=== PATIENT | female | born 1940 | race Caucasian/White ===

== ENCOUNTER → 2017-03-14 | Outpatient (CLI) | payer MEDICARE ==
--- NOTE | 2017-03-14 19:11 | XCELERA REPORT ---
[address] [address] Lower Extremity Venous Evaluation Name: PAL STERLING Age: 76 yrs Gender: Female : 1940 Patient Status: Outpatient Patient Location: Study Date: 03/14/2017 03:58 PM Procedure: Color flow and duplex imaging bilaterally of the veins of the lower extremities as well as the Common Femoral veins. Reason For Study: BLE EDEMA Ordering Physician: MILLA MUELLER Performed By: Nic Yarbrough Right Sided Venous Evaluation Peroneal veins difficult to visualize. Only one of two convincingly demonstrate augmentation. Otherwise normal vessel filling wall to wall, compression and augmentation as well as Colour flow down to the infrageniculate veins. Left Sided Venous Evaluation Peroneal veins difficult to visualize. Otherwise normal vessel filling wall to wall, compression and augmentation as well as Colour flow down to the infrageniculate veins. Interpretation Summary Equivocal findings in one of two Peroneal veins on the right. Peroneal veins difficult to visualize,bilaterally. Suggest repeat study in a few days. : MILLA MUELLER > Héctor Saenz
== END ==
LOC: SP 15:27
PROVIDERS: ATTEND Family Medicine
DX: R60.9 Edema, unspecified (principal)
CPT/HCPCS: 93970

== ENCOUNTER → 2017-03-16 | Outpatient (CLI) | payer MEDICAID, MEDICARE, OTHER ==
--- NOTE | 2017-03-16 16:02 | XCELERA REPORT ---
[address] [address] Lower Extremity Venous Evaluation Name: PAL STERLING Age: 76 yrs Gender: Female : 1940 Patient Status: Outpatient Patient Location: Study Date: 03/16/2017 02:01 PM Procedure: Color flow and duplex imaging of the veins of the right lower extremity as well as the left Common Femoral vein. Reason For Study: RLE EDEMA R60.9 Ordering Physician: MILLA MUELLER Performed By: Lenore Johnston Right Sided Venous Evaluation Normal vessel filling wall to wall, compression and augmentation as well as Colour flow down to the infrageniculate veins. Left Sided Venous Evaluation The left common femoral vein is fully compressible. Spontaneous and phasic flow is present in the left common femoral vein. Interpretation Summary No duplex evidence of DVT or obstruction in the right lower extremity nor in the left Common Femoral vein. : MILLA MUELLER > Héctor Saenz
== END ==
LOC: SP 13:47
PROVIDERS: ATTEND Family Medicine
DX: R60.9 Edema, unspecified (principal)
CPT/HCPCS: 93971

== ENCOUNTER 2017-09-21 11:55 | Day surgery (SDC) | payer MEDICARE ==
[~2017-09-21 11:55] MED LIST: CHONDR SU A NA/HYALUR INTRAOC KIT (SURGICARE) ONE; EPINEPHRINE INJ/PF 1 MG/1 ML AMPULE ONE; KETOROLAC TROMETHAMINE 0.45% 4 DROP/0.4 ML DROPERETTE OD PRN; LIDOCAINE 1% INJ-PF (10 MG/ML) 30 ML SDV ONE; TETRACAINE HCL 0.5% OPH SOLN 0.6 ML DROPERETTE ONE; TOBRAMYCIN SULFATE/DEXAMETH OPH OINTMENT 3.5 GM ONE
[2017-09-21] MEDS: TROPICAMIDE 1% OPH SOLN 3 ML OD PRN ×3 (12:25→12:45)
[2017-09-21] MEDS: CYCLOPENTOLATE 0.2%/PHENYLEPHRINE 1% OPH SOLN 2 ML OD PRN ×3 (12:25→12:45)
[2017-09-21] MEDS: TETRACAINE HCL 0.5% OPH SOLN 0.6 ML DROPERETTE OD PRN ×3 (12:26→12:49)
[2017-09-21] MEDS: BESIFLOXACIN HCL 0.6% OPH SUSP 5 ML BOTTLE OD PRN ×3 (12:26→13:09)
[2017-09-21] MEDS ORDERED: MIDAZOLAM 2 MG/2 ML INJ ONE (12:32)
== END 2017-09-21 14:02 | disposition home or self-care (01) ==
LOC: SC 11:55
PROVIDERS: ATTEND Ophthalmology
PROC: 08RJ3JZ Replacement of Right Lens with Synthetic Substitute, Percutaneous Approach (ICD-10-PCS; principal; 2017-09-21 12:45)
DX: H25.11 Age-related nuclear cataract, right eye (principal); J44.9 Chronic obstructive pulmonary disease, unspecified; I10 Essential (primary) hypertension; E78.00 Pure hypercholesterolemia, unspecified; Z87.891 Personal history of nicotine dependence; Z79.51 Long term (current) use of inhaled steroids; Z79.899 Other long term (current) drug therapy
CPT/HCPCS: 66984; V2630; J2250; J3490 ×3; A9270; J0171; 142

== ENCOUNTER 2017-09-28 10:20 | Day surgery (SDC) | payer MEDICARE ==
[~2017-09-28 10:20] MED LIST changes: -CHONDR SU A NA/HYALUR INTRAOC KIT (SURGICARE) ONE; -EPINEPHRINE INJ/PF 1 MG/1 ML AMPULE ONE; -KETOROLAC TROMETHAMINE 0.45% 4 DROP/0.4 ML DROPERETTE OD PRN; +KETOROLAC TROMETHAMINE 0.45% 4 DROP/0.4 ML DROPERETTE OS PRN; -LIDOCAINE 1% INJ-PF (10 MG/ML) 30 ML SDV ONE; -TETRACAINE HCL 0.5% OPH SOLN 0.6 ML DROPERETTE ONE; -TOBRAMYCIN SULFATE/DEXAMETH OPH OINTMENT 3.5 GM ONE
[2017-09-28] MEDS: TETRACAINE HCL 0.5% OPH SOLN 0.6 ML DROPERETTE OS PRN ×4 (10:45→11:26)
[2017-09-28] MEDS: CYCLOPENTOLATE 0.2%/PHENYLEPHRINE 1% OPH SOLN 2 ML OS PRN ×3 (10:46→11:10)
[2017-09-28] MEDS: BESIFLOXACIN HCL 0.6% OPH SUSP 5 ML BOTTLE OS PRN ×4 (10:46→11:45)
[2017-09-28] MEDS: TROPICAMIDE 1% OPH SOLN 3 ML OS PRN ×3 (10:46→11:10)
[2017-09-28] MEDS ORDERED: MIDAZOLAM 2 MG/2 ML INJ ONE (11:16)
[2017-09-28] MEDS ORDERED: FENTANYL CITRATE INJ/PF 100 MCG/2 ML AMPUL ONE (11:17)
[2017-09-28] MEDS: LIDOCAINE 1% INJ-PF (10 MG/ML) 30 ML SDV ONE ×2 (11:35)
[2017-09-28] MEDS: EPINEPHRINE INJ/PF 1 MG/1 ML AMPULE ONE ×2 (11:35)
[2017-09-28] MEDS: CHONDR SU A NA/HYALUR INTRAOC KIT (SURGICARE) ONE ×2 (11:35)
[2017-09-28] MEDS: TOBRAMYCIN SULFATE/DEXAMETH OPH OINTMENT 3.5 GM ONE ×2 (11:45)
== END 2017-09-28 12:35 | disposition home or self-care (01) ==
LOC: SC 10:20
PROVIDERS: ATTEND Ophthalmology
PROC: 08RK3JZ Replacement of Left Lens with Synthetic Substitute, Percutaneous Approach (ICD-10-PCS; principal; 2017-09-28 11:15)
DX: H25.12 Age-related nuclear cataract, left eye (principal); Z98.41 Cataract extraction status, right eye; J44.9 Chronic obstructive pulmonary disease, unspecified; I10 Essential (primary) hypertension; E78.00 Pure hypercholesterolemia, unspecified; Z96.651 Presence of right artificial knee joint; Z79.899 Other long term (current) drug therapy; Z79.51 Long term (current) use of inhaled steroids; Z87.891 Personal history of nicotine dependence
CPT/HCPCS: 66984; V2630; J2250; J3490 ×3; A9270; J0171; J3010; 142

== ENCOUNTER 2018-05-26 17:20 | Inpatient (IN) | payer MEDICARE, MEDICAID ==
[2018-05-26] MEDS ORDERED: DEXAMETHASONE SOD PHOS INJ 10 MG/1 ML VIAL IV ONE (17:46)
[2018-05-26] MEDS ORDERED: MORPHINE SULFATE 10 MG/ML INJ IV ONE (17:46)
[2018-05-26] MEDS ORDERED: ONDANSETRON HCL INJ/PF 4 MG/2 ML SDV IV ONE (17:46)
--- NOTE | 2018-05-26 18:33 | RADIOLOGY REPORT (SQ) ---
EXAM DESCRIPTION: PELVIS AP COMPLETED DATE/TIME: 05/26/2018 6:21 pm REASON FOR STUDY: fall COMPARISON: None. NUMBER OF VIEWS: One view TECHNIQUE: AP Pelvis LIMITATIONS: None. FINDINGS: MINERALIZATION: Normal. HIPS: No acute fracture or dislocation. No worrisome bone lesions. PELVIS AND SACRUM: No acute fracture or dislocation. No worrisome bone lesions. PUBIS AND ISCHIUM: No acute fracture. Incidental cortical bone island in the left ischium. LOWER LUMBAR SPINE: No significant findings as visualized. SOFT TISSUES: No findings. OTHER: Intact hardware in the right femur. IMPRESSION: NO ACUTE FINDINGS. INTACT HARDWARE IN THE RIGHT FEMUR. TECHNICAL DOCUMENTATION: JOB ID: [id number] [employer]- All Rights Reserved Reading location - IP/workstation name: [email or web address]
--- NOTE | 2018-05-26 18:35 | RADIOLOGY REPORT (SQ) ---
EXAM DESCRIPTION: T SPINE AP/LAT COMPLETED DATE/TIME: 05/26/2018 6:21 pm REASON FOR STUDY: fall COMPARISON: Chest x-ray dated 11/20/2015. NUMBER OF VIEWS: Two views. TECHNIQUE: AP and lateral radiographic images acquired of the thoracic spine. LIMITATIONS: None. FINDINGS: MINERALIZATION: Normal. ALIGNMENT: Normal. No scoliosis. VERTEBRAE: Mild wedge deformities of the midthoracic vertebrae appear unchanged. DISCS: Multilevel disc space narrowing with osteophytes. HARDWARE: None in the spine. MEDIASTINUM AND SOFT TISSUES: Normal heart size and aortic contour. No soft tissue abnormality. VISUALIZED LUNG ROSALES: Clear. OTHER: No other significant finding. IMPRESSION: CHRONIC DEGENERATIVE CHANGES. NO APPARENT ACUTE FINDINGS. TECHNICAL DOCUMENTATION: JOB ID: [id number] [employer]- All Rights Reserved Reading location - IP/workstation name: [email or web address]
--- NOTE | 2018-05-26 18:36 | ER Document Report ---
ED General - General Chief Complaint: Fall Stated Complaint: GENERAL WEAKNESS Time Seen by Provider: 05/26/18 17:44 Mode of Arrival: Ambulatory Information source: Patient Notes: This is a 77-year-old female with a history of COPD, hypertension who presents to the emergency room after a fall in the kitchen while she was appearing for dinner. Patient fell on her buttocks, she denies head injury or neck pain. She does have significant lumbar pain and was brought in by EMS. She denies any weakness to the lower extremities. She denies any numbness to the lower extremities. She denies any numbness to the saddle area. TRAVEL OUTSIDE OF THE [place] IN LAST 30 DAYS: No - HPI Onset: Just prior to arrival Onset/Duration: Sudden Quality of pain: Dull Severity: Severe Pain Level: 5 Associated symptoms: denies: Chest pain, Fever, Shortness of breath Exacerbated by: Movement Relieved by: Remaining still Similar symptoms previously: No Recently seen / treated by doctor: Yes - Related Data Allergies/Adverse Reactions: Coconut * [Coconut] Allergy (Severe, Verified 08/20/15 14:50) Swelling of Throat strawberries Allergy (Severe, Uncoded 08/20/15 14:50) hives/rash/itch Past Medical History - General Information source: Patient - Social History Smoking Status: Never Smoker Cigarette use (# per day): No Chew tobacco use (# tins/day): No Frequency of alcohol use: None Drug Abuse: None Lives with: Family Family History: None Patient has suicidal ideation: No Patient has homicidal ideation: No - Past Medical History Cardiac Medical History: Reports: Hx Hypercholesterolemia - meds x 7 years, Hx Hypertension - meds x 10 years, Hx Heart Murmur - as child only Denies: Hx Atrial Fibrillation, Hx Congestive Heart Failure, Hx Coronary Artery Disease, Hx Heart Attack, Hx Peripheral Vascular Disease Pulmonary Medical History: Reports: Hx Asthma Neurological Medical History: Denies: Hx Cerebrovascular Accident, Hx Seizures Renal/ Medical History: Denies: Hx End Stage Renal Disease, Hx Kidney Stones, Hx Peritoneal Dialysis Malignancy Medical History: Denies: Hx Leukemia GI Medical History: Denies: Hx Hepatitis, Hx Hiatal Hernia, Hx Ulcer Musculoskeletal Medical History: Reports Hx Arthritis, Denies Hx Fibromyalgia, Denies Hx Muscular Dystrophy Traumatic Medical History: Reports: Hx Fractures - LT tib/fib, 1968, traction x 24 days, LT wrist ORIF 2007 Infectious Medical History: Denies: Hx Hepatitis, Hx HIV Past Surgical History: Reports: Hx Section - x 4, Hx Tonsillectomy - at age 44 years old, Hx Tubal Ligation. Denies: Hx Appendectomy, Hx Bowel Surgery, Hx Cholecystectomy, Hx Coronary Artery Bypass Graft, Hx Gastric Bypass Surgery, Hx Herniorrhaphy, Hx Hysterectomy, Hx Mastectomy, Hx Open Heart Surgery , Hx Pacemaker Review of Systems - Review of Systems Constitutional: denies: Chills, Fever EENT: No symptoms reported Cardiovascular: denies: Chest pain, Palpitations, Syncope, Dizziness Respiratory: denies: Cough, Short of breath, Wheezing Gastrointestinal: denies: Abdomen distended, Abdominal pain Genitourinary: No symptoms reported Female Genitourinary: No symptoms reported Musculoskeletal: Back pain. denies: Neck pain Skin: No symptoms reported Hematologic/Lymphatic: No symptoms reported Neurological/Psychological: denies: Loss of power, Seizure, Lost consciousness, Headaches Physical Exam - Vital signs Vitals: Temp Pulse Resp BP Pulse Ox 97.5 F 64 16 135/52 H 94 05/26/18 17:28 05/26/18 17:28 05/26/18 17:28 05/26/18 17:28 05/26/18 17:28 Notes: Physical exam: GENERAL: A 77-year-old female, alert and oriented 3, complaining of low back pain HEAD: Atraumatic, normocephalic. EYES: Pupils equal round and reactive to light, extraocular movements intact, sclera anicteric, conjunctiva are normal. ENT: TMs normal, nares patent, oropharynx clear without exudates. Moist mucous membranes. NECK: Normal range of motion, supple without obvious mass, no cervical spine tenderness LUNGS: Breath sounds clear to auscultation bilaterally and equal. No wheezes rales or rhonchi. Chest wall is nontender to palpation. HEART: Regular rate and rhythm without murmurs, rubs or gallops. Back: No T-spine tenderness to palpation. Patient is a lot of the lumbar spine tenderness. Her pelvis posteriorly is nontender. ABDOMEN: Soft, normoactive bowel sounds. No tenderness to palpation. No guarding, no rebound. No masses appreciated. EXTREMITIES: She has a fused right knee. Palpation of the whole extremity is nontender. She has full range of motion of the left knee and no tenderness to palpation of the left lower extremity. She does have positive straight leg raising at 20. Normal range of motion, no pitting or edema. No clubbing or cyanosis. Upper extremities have normal range of motion (some limitation of the right shoulder due to arthritis). Extremities are nontender. NEUROLOGICAL: Cranial nerves II through XII grossly intact. Normal speech, sensory good. Patient mentating appropriately. PSYCH: Normal mood, normal affect. SKIN: Warm, Dry, normal turgor, no rashes or lesions noted. Course - Re-evaluation Re-evalutation: 05/26/18 21:[address] shows some mild compressions of the lumbar spine without any obvious fracture. Patient was given IV steroids and IV morphine for pain. We did test her in the emergency room as to whether she could bear weight or ambulate and she could not make it to feet. I discussed the case with Dr. Gunn who will be admitting the patient. I did speak to Lisa Hilton who is first call for the [place] [facility] who is willing to see the patient tomorrow for pain management. - Vital Signs Vital signs: Temp Pulse Resp BP Pulse Ox 98.3 F 65 18 146/63 H 92 05/26/18 22:45 05/26/18 22:45 05/26/18 22:45 05/26/18 22:45 05/26/18 22:45 - Laboratory Result Diagrams: 05/26/18 19:09 05/26/18 19:09 Laboratory results interpreted by me: 05/26/18 19:09 Seg Neutrophils % 83.8 H Lymphocytes % 9.4 L - Diagnostic Test Radiology reviewed: Image reviewed, Reports reviewed - CT of the lumbar spine shows some compression deformities without obvious fracture Discharge - Discharge Clinical Impression: Acute back pain status post fall, Ambulatory dysfunction Condition: Stable Disposition: ADMITTED INPATIENT Admitting Provider: Luis A Unit Admitted: Medical Floor
--- NOTE | 2018-05-26 18:59 | RADIOLOGY REPORT (SQ) ---
EXAM DESCRIPTION: CT LUMBAR SPINE WITHOUT COMPLETED DATE/TIME: 05/26/2018 6:41 pm REASON FOR STUDY: low back pain COMPARISON: None. TECHNIQUE: Axial images acquired through the lumbar spine without intravenous contrast. Images revi ewed with lung, soft tissue and bone windows. Reconstructed coronal and sagittal MPR images reviewed . All images stored on PACS. All CT scanners at this facility use dose modulation, iterative reconstruction, and/or weight based d osing when appropriate to reduce radiation dose to as low as reasonably achievable (ALARA). [facility]: Dose Right [facility]: CareDose [facility]: Dose Right [facility]: Teradose 4D [facility]: PrairieSmarts RADIATION DOSE: mGy. LIMITATIONS: None. FINDINGS: SEGMENTATION: Normal. No transitional anatomy. ALIGNMENT: Increased lordosis. VERTEBRAL BODIES: Mild superior endplate compression changes at L5 that do not appear acute. Mild an terior wedging T12 does not appear acute. DISCS: No significant protrusions. Study limited by lack of intrathecal contrast. PEDICLES, TRANSVERSE PROCESSES: No fractures. No dislocation. No acute findings. FACETS, POSTERIOR ELEMENTS: Hypertrophic facet changes from L4-S1, more on the right than the left. HARDWARE: None in the spine. VISUALIZED RIBS: No fractures. SOFT TISSUES: No significant or acute finding in adjacent soft tissues. OTHER: No other significant finding. IMPRESSION: Increased lordosis. Mild compression changes as described. These do not appear to be a cute. Facet arthropathy. No significant disc protrusions are seen. No significant spinal stenosis is noted. Study is limited by lack of intrathecal contrast. TECHNICAL DOCUMENTATION: JOB ID: [id number] Quality ID # [id number]: Final reports with documentation of one or more dose reduction techniques (e.g., Au tomated exposure control, adjustment of the mA and/or kV according to patient size, use of iterative reconstruction technique) 2010 [employer]- All Rights Reserved Reading location - IP/workstation name: [email or web address]
[2018-05-26 19:35] LABS: ABSOLUTE EOSINOPHILS # (AUTO) 0.1 10^3/uL (0.0-0.6); ABSOLUTE LYMPHOCYTES (AUTO) 0.9 10^3/uL (0.5-4.7); ABSOLUTE MONOCYTES (AUTO) 0.5 10^3/uL (0.1-1.4); ABSOLUTE NEUT (AUTO) 7.7 10^3/uL (1.7-8.2); BASOPHILS % (AUTO) 0.2 % (0-2); EOSINOPHILS % (AUTO) 1.5 % (0-6); HEMATOCRIT 38.9 % (36.0-47.0); HEMOGLOBIN 13.1 g/dL (12.0-15.5); LYMPHOCYTES % (AUTO) 9.4 % (13-45); MEAN CORPUSCULAR HEMOGLOBIN 28.9 pg (27.0-33.4); MEAN CORPUSCULAR HGB CONC 33.5 g/dL (32.0-36.0); MEAN CORPUSCULAR VOLUME 86 fl (80-97); MONOCYTES % (AUTO) 5.1 % (3-13); PLATELET COUNT 203 10^3/uL (150-450); RED BLOOD COUNT 4.52 10^6/uL (3.72-5.28); SEGMENTED NEUTROPHILS % (AUTO) 83.8 % (42-78); TOTAL CELLS COUNTED % (AUTO) 100 %; WHITE BLOOD COUNT 9.2 10^3/uL (4.0-10.5)
[2018-05-26 19:44] LABS: INTERNATIONAL RATION (INR) 0.88; PROTHROMBIN TIME 12.4 SEC (11.4-15.4)
[2018-05-26 19:55] LABS: ALANINE AMINOTRANSFERASE 22 U/L (9-52); ALBUMIN 4.1 g/dL (3.5-5.0); ALKALINE PHOSPHATASE 78 U/L (38-126); ANION GAP 12 (5-19); ASPARTATE AMINO TRANSFERASE 27 U/L (14-36); BILIRUBIN,DIRECT 0.3 mg/dL (0.0-0.4); BILIRUBIN,TOTAL 0.5 mg/dL (0.2-1.3); BLOOD UREA NITROGEN 19 mg/dL (7-20); CALCIUM 9.6 mg/dL (8.4-10.2); CARBON DIOXIDE 26 mmol/L (22-30); CHLORIDE 100 mmol/L (98-107); GLUCOSE 105 mg/dL (75-110); POTASSIUM 4.5 mmol/L (3.6-5.0); SODIUM 137.8 mmol/L (137-145); TOTAL PROTEIN 7.2 g/dL (6.3-8.2)
[2018-05-26] MEDS ORDERED: ONDANSETRON HCL INJ/PF 4 MG/2 ML SDV IV PRN (21:22)
[2018-05-26] MEDS ORDERED: ACETAMINOPHEN 325 MG TABLET PO PRN (21:22)
[2018-05-26] MEDS ORDERED: IPRATROPIUM/ALBUTEROL 0.5-2.5 MG/3 ML AMPUL NEB PRN (21:30)
[2018-05-26] MEDS ORDERED: MORPHINE SULFATE 10 MG/ML INJ IV PRN (21:32)
[2018-05-26] MEDS: FAMOTIDINE 20 MG TABLET PO SCH (22:27)
[2018-05-26 22:49] LABS: APPEARANCE,URINE CLEAR; BILIRUBIN,URINE NEGATIVE (NEGATIVE); COLOR,URINE STRAW; GLUCOSE, URINE NEGATIVE (NEGATIVE); KETONES,URINE NEGATIVE (NEGATIVE); LEUKOCYTE ESTERASE,URINE NEGATIVE (NEGATIVE); NITRITE,URINE NEGATIVE (NEGATIVE); PROTEIN,URINE NEGATIVE (NEGATIVE); UROBILINOGEN,URINE NEGATIVE mg/dL (<2.0)
[2018-05-26] MEDS: OXYCODONE-ACETAMINOPHEN 5-325 MG TABLET PO PRN (23:06)
[2018-05-27] MEDS: OXYCODONE-ACETAMINOPHEN 5-325 MG TABLET PO PRN ×3 (06:06→18:56)
[2018-05-27 07:40] LABS: ABSOLUTE LYMPHOCYTES (AUTO) 0.4 10^3/uL (0.5-4.7); ABSOLUTE MONOCYTES (AUTO) 0.1 10^3/uL (0.1-1.4); ABSOLUTE NEUT (AUTO) 4.5 10^3/uL (1.7-8.2); BASOPHILS % (AUTO) 0.2 % (0-2); HEMATOCRIT 37.7 % (36.0-47.0); HEMOGLOBIN 12.7 g/dL (12.0-15.5); LYMPHOCYTES % (AUTO) 8.3 % (13-45); MEAN CORPUSCULAR HEMOGLOBIN 29.1 pg (27.0-33.4); MEAN CORPUSCULAR HGB CONC 33.6 g/dL (32.0-36.0); MEAN CORPUSCULAR VOLUME 87 fl (80-97); MONOCYTES % (AUTO) 2.7 % (3-13); PLATELET COUNT 202 10^3/uL (150-450); RED BLOOD COUNT 4.36 10^6/uL (3.72-5.28); RED CELL DISTRIBUTION WIDTH 13.6 % (11.5-14.0); SEGMENTED NEUTROPHILS % (AUTO) 88.8 % (42-78); TOTAL CELLS COUNTED % (AUTO) 100 %; WHITE BLOOD COUNT 5.1 10^3/uL (4.0-10.5)
[2018-05-27 08:03] LABS: ANION GAP 11 (5-19); BLOOD UREA NITROGEN 20 mg/dL (7-20); CARBON DIOXIDE 24 mmol/L (22-30); CHLORIDE 104 mmol/L (98-107); GLUCOSE 131 mg/dL (75-110); POTASSIUM 4.5 mmol/L (3.6-5.0); SODIUM 139.4 mmol/L (137-145)
--- NOTE | 2018-05-27 09:27 | PDOC H&P ---
History of Present Illness Admission Date/PCP: 05/26/18 21:33 MILLA MUELLER MD Patient complains of: fall and the back pain History of Present Illness: PAL STERLING is a 77 year old female This is a 77-year-old female with a significant history of the knee issue and arthritis with a significant complications from the knee replacements and patients admitting in the [facility] last year currently doing well with the knee was fell yesterday at home and landed on the back in a complaining of back pain mostly on the right side In the emergency department patients all the x-rays pretty much stable patient was CT of the LS spine was done with some compressions but no fracture In emergency departments patients of a lot of pain in patients unable to walk and ER physicians decided to call me and suggest to admissions for further evaluations When I saw the patient's patient was currently doing well the pain under control with the Percocet patient is mostly complaining on the right side of the back Patient's denied any abdominal pain no nausea no vomiting Patients move all 4 extremities without any problems Patient's currently denied any dizziness no chest pain Past Medical History Cardiac Medical History: Reports: Hyperlipidema - meds x 7 years, Hypertension - meds x 10 years, Heart Murmur - as child only Denies: Atrial Fibrillation, Congestive Heart Failure, Coronary Artery Disease, Myocardial Infarction, Peripheral Vascular Disease Pulmonary Medical History: Reports: Asthma, Chronic Obstructive Pulmonary Disease (COPD) Neurological Medical History: Denies: Seizures Renal/ Medical History: Denies: End Stage Renal Disease Malignancy Medical History: Denies: Leukemia GI Medical History: Denies: Hepatitis, Hiatal Hernia Musculoskeltal Medical History: Reports: Arthritis Denies: Fibromyalgia Hematology: Reports: Anemia - w/blood transfusion 1958 (post-op ) Denies: Hemophilia, Sickle Cell Disease Infectious Medical History: Denies: HIV Past Surgical History Past Surgical History: Reports: Section - x 4, Tonsillectomy - at age 44 years old, Tubal Ligation Denies: Amputation, Appendectomy, Cholecystectomy, Coronary Artery Bypass Graft, Gastric Bypass Surgery, Herniorrhaphy, Hysterectomy, Mastectomy, Pacemaker Social History Lives with: Family Smoking Status: Never Smoker Hx Recreational Drug Use: No Hx Prescription Drug Abuse: No - Advance Directive Resuscitation Status: Full Code Family History Family History: None, Reviewed & Not Pertinent Parental Family History Reviewed: Yes Children Family History Reviewed: Yes Sibling(s) Family History Reviewed.: Yes Medication/Allergy Allergies/Adverse Reactions: Coconut * [Coconut] Allergy (Severe, Verified 08/20/15 14:50) Swelling of Throat Sulfa (Sulfonamide Antibiotics) Allergy (Severe, Verified 05/27/18 09:23) strawberries Allergy (Severe, Uncoded 08/20/15 14:50) hives/rash/itch Review of Systems Constitutional: ABSENT: chills, fever(s), headache(s), weight gain, weight loss Eyes: ABSENT: visual disturbances Ears: ABSENT: hearing changes Cardiovascular: ABSENT: chest pain, dyspnea on exertion, edema, orthropnea, palpitations Respiratory: ABSENT: cough, hemoptysis Gastrointestinal: ABSENT: abdominal pain, constipation, diarrhea, hematemesis, hematochezia, nausea, vomiting Genitourinary: ABSENT: dysuria, hematuria Musculoskeletal: ABSENT: joint swelling Integumentary: ABSENT: rash, wounds Neurological: ABSENT: abnormal gait, abnormal speech, confusion, dizziness, focal weakness, syncope Psychiatric: ABSENT: anxiety, depression, homidical ideation, suicidal ideation Endocrine: ABSENT: cold intolerance, heat intolerance, menstrual abnormalities, polydipsia, polyuria Hematologic/Lymphatic: ABSENT: easy bleeding, easy bruising, lymphadenopathy Physical Exam Vital Signs: Temp Pulse Resp BP Pulse Ox 97.4 F 64 18 118/63 95 05/27/18 07:58 05/27/18 07:58 05/27/18 07:58 05/27/18 07:58 05/27/18 07:58 Intake & Output 05/26/18 05/27/18 05/28/18 06:59 06:59 06:59 Intake Total 110 Output Total 1000 Balance -890 Weight 66.5 kg General appearance: PRESENT: no acute distress, well-developed, well-nourished Head exam: PRESENT: atraumatic, normocephalic Eye exam: PRESENT: conjunctiva pink, EOMI, PERRLA. ABSENT: scleral icterus Ear exam: PRESENT: normal external ear exam Mouth exam: PRESENT: moist, tongue midline Neck exam: PRESENT: full ROM. ABSENT: carotid bruit, JVD, lymphadenopathy, thyromegaly Respiratory exam: PRESENT: clear to auscultation hellen Cardiovascular exam: PRESENT: RRR. ABSENT: diastolic murmur, rubs, systolic murmur Pulses: PRESENT: normal dorsalis pedis pul, +2 pedal pulses bilateral Vascular exam: PRESENT: normal capillary refill GI/Abdominal exam: PRESENT: normal bowel sounds, soft. ABSENT: distended, guarding, mass, organolmegaly, rebound, tenderness Rectal exam: PRESENT: deferred Musculoskeletal exam: PRESENT: ambulatory, tenderness Additional comments: Right paraspinal muscles in the lower spine Neurological exam: PRESENT: alert, awake, oriented to person, oriented to place , oriented to time, oriented to situation, CN II-XII grossly intact. ABSENT: motor sensory deficit Psychiatric exam: PRESENT: appropriate affect, normal mood. ABSENT: homicidal ideation, suicidal ideation Skin exam: PRESENT: dry, intact, warm. ABSENT: cyanosis, rash Results Laboratory Results: 05/27/18 06:17 05/27/18 06:17 05/26/18 05/27/18 05/27/18 22:21 06:17 06:17 WBC 5.1 RBC 4.36 Hgb 12.7 Hct 37.7 MCV 87 MCH 29.1 MCHC 33.6 RDW 13.6 Plt Count 202 Seg Neutrophils % 88.8 H Lymphocytes % 8.3 L Monocytes % 2.7 L Eosinophils % 0.0 Basophils % 0.2 Absolute Neutrophils 4.5 Absolute Lymphocytes 0.4 L Absolute Monocytes 0.1 Absolute Eosinophils 0.0 Absolute Basophils 0.0 Sodium 139.4 Potassium 4.5 Chloride 104 Carbon Dioxide 24 Anion Gap 11 BUN 20 Creatinine 0.77 Est GFR ( Amer) > 60 Est GFR (Non-Af Amer) > 60 Glucose 131 H Calcium 9.0 Urine Color STRAW Urine Appearance CLEAR Urine pH 5.0 Ur Specific [place] 1.010 Urine Protein NEGATIVE Urine Glucose (UA) NEGATIVE Urine Ketones NEGATIVE Urine Blood NEGATIVE Urine Nitrite NEGATIVE Ur Leukocyte Esterase NEGATIVE Urine WBC (Auto) 1 Urine RBC (Auto) 0 Impressions: Lumbar Spine CT 05/26/18 17:47 IMPRESSION: Increased lordosis. Mild compression changes as described. These do not appear to be acute. Facet arthropathy. No significant disc protrusions are seen. No significant spinal stenosis is noted. Study is limited by lack of intrathecal contrast. Thoracic Spine X-Ray 05/26/18 17:47 IMPRESSION: CHRONIC DEGENERATIVE CHANGES. NO APPARENT ACUTE FINDINGS. Pelvis X-Ray 05/26/18 17:48 IMPRESSION: NO ACUTE FINDINGS. INTACT HARDWARE IN THE RIGHT FEMUR. Assessment & Plan - Diagnosis (1) Lumbar spine root compression Is this a current diagnosis for this admission?: Yes Plan: Obviously no seen any fracture on the CT scan will wait for the pain management for further evaluations order of the physical therapy (2) Hypertension Qualifiers: Hypertension type: essential hypertension Qualified Code(s): I10 - Essential (primary) hypertension Is this a current diagnosis for this admission?: Yes Plan: Currently stable (3) Gastroesophageal reflux disease Qualifiers: Esophagitis presence: without esophagitis Qualified Code(s): K21.9 - Gastro -esophageal reflux disease without esophagitis Is this a current diagnosis for this admission?: Yes (4) Primary osteoarthritis of right knee Is this a current diagnosis for this admission?: Yes - Time Time Spent: 30 to 50 Minutes Medications reviewed and adjusted accordingly: Yes Anticipated discharge: Home Within: Other - Inpatient Certification Medical Necessity: Need Close Monitoring Due to Risk of Patient Decompensation Post Hospital Care: D/C Jig Hand Documentation - Plan Summary Plan Summary: See other MD orders
[2018-05-27] MEDS: DOCUSATE SODIUM 100 MG CAPSULE PO SCH ×2 (09:43→17:07)
[2018-05-27] MEDS: FAMOTIDINE 20 MG TABLET PO SCH ×2 (09:43→22:29)
[2018-05-27] MEDS: ENOXAPARIN SODIUM INJ 40 MG/0.4 ML DISP.SYRIN SUBCUT SCH (09:43)
[2018-05-28] MEDS: OXYCODONE-ACETAMINOPHEN 5-325 MG TABLET PO PRN ×3 (01:35→21:41)
[2018-05-28 06:55] LABS: ABSOLUTE EOSINOPHILS # (AUTO) 0.3 10^3/uL (0.0-0.6); ABSOLUTE LYMPHOCYTES (AUTO) 1.3 10^3/uL (0.5-4.7); ABSOLUTE MONOCYTES (AUTO) 0.4 10^3/uL (0.1-1.4); ABSOLUTE NEUT (AUTO) 3.8 10^3/uL (1.7-8.2); BASOPHILS % (AUTO) 0.5 % (0-2); EOSINOPHILS % (AUTO) 4.8 % (0-6); HEMATOCRIT 35.1 % (36.0-47.0); LYMPHOCYTES % (AUTO) 22.3 % (13-45); MEAN CORPUSCULAR HEMOGLOBIN 29.5 pg (27.0-33.4); MEAN CORPUSCULAR HGB CONC 34.1 g/dL (32.0-36.0); MEAN CORPUSCULAR VOLUME 87 fl (80-97); MONOCYTES % (AUTO) 7.4 % (3-13); PLATELET COUNT 173 10^3/uL (150-450); RED BLOOD COUNT 4.05 10^6/uL (3.72-5.28); RED CELL DISTRIBUTION WIDTH 14.1 % (11.5-14.0); TOTAL CELLS COUNTED % (AUTO) 100 %; WHITE BLOOD COUNT 5.8 10^3/uL (4.0-10.5)
[2018-05-28 07:36] LABS: ANION GAP 7 (5-19); BLOOD UREA NITROGEN 23 mg/dL (7-20); CARBON DIOXIDE 31 mmol/L (22-30); CHLORIDE 102 mmol/L (98-107); GLUCOSE 86 mg/dL (75-110); POTASSIUM 4.1 mmol/L (3.6-5.0); SODIUM 140.2 mmol/L (137-145)
[2018-05-28] MEDS: ENOXAPARIN SODIUM INJ 40 MG/0.4 ML DISP.SYRIN SUBCUT SCH (09:28)
[2018-05-28] MEDS: FAMOTIDINE 20 MG TABLET PO SCH ×2 (09:34→21:41)
[2018-05-28] MEDS: DOCUSATE SODIUM 100 MG CAPSULE PO SCH ×2 (09:34→17:31)
--- NOTE | 2018-05-28 09:39 | RADIOLOGY REPORT (SQ) ---
EXAM DESCRIPTION: MRI LUMBAR SPINE WITHOUT COMPLETED DATE/TIME: 05/27/2018 8:21 pm REASON FOR STUDY: Back pain COMPARISON: CT dated 05/26/2018. TECHNIQUE: Sagittal and Axial imaging includes T1, T2, STIR and gradient echo sequences. Coronal T2/ HASTE imaging. LIMITATIONS: None. FINDINGS: VISUALIZED UPPER ABDOMEN: Limited evaluation. No acute or suspicious findings suggested. SEGMENTATION: No transitional anatomy. The lowest well-developed disc space is labeled L5-S1. ALIGNMENT: Anatomic. VERTEBRAE: Minimal compression of the superior endplate of L1 with less than 10% loss of height of th e vertebral body. BONE MARROW: Faint linear edema marrow signal in the body of L1. No marrow replacement. DISC SIGNAL: Normal. No significant abnormal signal or loss of height. POSTERIOR ELEMENTS: Generally intact. Facet arthropathy, more pronounced in the lower lumbar spine. No pars defect evident. HARDWARE: None in the spine. CORD AND CONUS: Normal in size and signal intensity. Conus at the appropriate level. SOFT TISSUES: No aortic aneurysm seen. No bulky retroperitoneal adenopathy or mass. No paraspinal mas s or fluid. L1-L2: No significant spinal stenosis or exit foraminal stenosis. L2-L3: No significant spinal stenosis or exit foraminal stenosis. L3-L4: No significant spinal stenosis or exit foraminal stenosis. L4-L5: No significant spinal stenosis or exit foraminal stenosis. L5-S1: No significant spinal stenosis or exit foraminal stenosis. LOWER THORACIC: Incompletely imaged. No stenosis seen. SACRUM: Visualized upper sacrum intact. OTHER: No other significant findings. IMPRESSION: 1. MARROW EDEMA IN THE L1 VERTEBRAL BODY WITH MINIMAL COMPRESSION CONSISTENT WITH RELATIVELY ACUTE CO MPRESSION FRACTURE. NO SIGNIFICANT LOSS OF HEIGHT OF THE VERTEBRAL BODY AND NO COMPROMISE OF THE SPI NAL CANAL. 2. NO SIGNIFICANT DISC DISEASE. NO STENOSIS OR IMPINGEMENT. DEGENERATIVE FACET ARTHROPATHY, MORE TX ONOUNCED IN THE LOWER LUMBAR SPINE. TECHNICAL DOCUMENTATION: JOB ID: [id number]- All Rights Reserved Reading location - IP/workstation name: [email or web address]
[2018-05-28] MEDS ORDERED: POLYETHYLENE GLYCOL 3350 POWDER 17 GM/1 PACKET PO ONE (22:00)
[2018-05-29 06:28] LABS: ABSOLUTE EOSINOPHILS # (AUTO) 0.3 10^3/uL (0.0-0.6); ABSOLUTE MONOCYTES (AUTO) 0.6 10^3/uL (0.1-1.4); BASOPHILS % (AUTO) 0.6 % (0-2); EOSINOPHILS % (AUTO) 4.7 % (0-6); HEMATOCRIT 36.2 % (36.0-47.0); HEMOGLOBIN 12.5 g/dL (12.0-15.5); LYMPHOCYTES % (AUTO) 16.9 % (13-45); MEAN CORPUSCULAR HEMOGLOBIN 29.3 pg (27.0-33.4); MEAN CORPUSCULAR HGB CONC 34.4 g/dL (32.0-36.0); MEAN CORPUSCULAR VOLUME 85 fl (80-97); PLATELET COUNT 162 10^3/uL (150-450); RED BLOOD COUNT 4.26 10^6/uL (3.72-5.28); RED CELL DISTRIBUTION WIDTH 13.8 % (11.5-14.0); SEGMENTED NEUTROPHILS % (AUTO) 67.8 % (42-78); TOTAL CELLS COUNTED % (AUTO) 100 %; WHITE BLOOD COUNT 5.9 10^3/uL (4.0-10.5)
[2018-05-29 06:50] LABS: ANION GAP 11 (5-19); BLOOD UREA NITROGEN 18 mg/dL (7-20); CALCIUM 9.1 mg/dL (8.4-10.2); CARBON DIOXIDE 27 mmol/L (22-30); CHLORIDE 102 mmol/L (98-107); GLUCOSE 95 mg/dL (75-110); POTASSIUM 3.8 mmol/L (3.6-5.0)
--- NOTE | 2018-05-29 07:56 | CONSULTATION REPORT E ---
Consultation Report NAME: PAL STERLING : 1940 AGE: 77Y DATE: 05/27/2018 434 A TO: AUBREY HENLEY PA-C FROM: MILLA MUELLER M.D. Requesting Physician PAIN MANAGEMENT CONSULTATION CHIEF COMPLAINT: Back pain. HISTORY OF PRESENT ILLNESS: This 77-year-old female admitted last night for significant and new onset back pain status post a fall. She denies radicular symptoms, weakness, footdrop, saddle anesthesia, bowel or bladder dysfunction, incontinence. She denies any prior history of any back pain or fractures prior to the recent fall and does not take any pain medication regularly. Pain upon admission was an "8/5." Percocet every 6 hours is holding her around a pain level of 2-3/5, with a maximum pain level of 4/5 once the relief wears off after about 4-5 hours. She denies any side effects, sedation, altered mental status, constipation. PAST MEDICAL HISTORY: 1. Hypertension. 2. Hyperlipidemia. 3. COPD. 4. Asthma. 5. Arthritis. 6. Anemia with a blood transfusion in 1958. PAST SURGICAL HISTORY: 1. x4. 2. Tubal ligation. 3. Tonsillectomy. 3. Right lower extremity fusion. SOCIAL HISTORY: Lives alone in a handicapped apartment. Does not smoke, drink alcohol, or use illicit drugs. FAMILY HISTORY: Not applicable. MEDICATIONS AT HOME: 1. Simvastatin 2. Lisinopril 3. Levocertrazine 4. Montelucast 5. Symbicort 6. Vit-D ALLERGIES: 1. SULFA DRUGS. 2. COCONUTS. 3. STRAWBERRIES. REVIEW OF SYSTEMS: Per the HPI. DIAGNOSTICS: CT L-spine 05/26/18, showed a mild superior endplate compression at L5, but does not appear acute. She has some mild anterior wedging at T12 that does not appear acute. She has hypertrophic facet changes from L4-S1, worse on the right than the left. PHYSICAL EXAMINATION: VITAL SIGNS: Temperature 98.3, pulse 66, blood pressure of 93/40, respirations 17, O2 is 95 on room air. GENERAL: This is a well-developed, well-nourished 77-year-old female in no acute distress, lying supine in bed at a slight angle and laying more towards her left side. EYES: EOMI. Wearing glasses. CARDIOVASCULAR: Regular rate and rhythm. No murmurs, rubs, or gallops. Pulses are +2 radial pulse and her dorsalis pedis pulses. There is no edema in her lower extremities. LUNGS: Respiration even and nonlabored work of breathing. Her lungs are clear to auscultation bilaterally. EXTREMITIES: The right lower extremity shows the surgical scar consistent with her fusion, otherwise, she can move her limbs freely. SPINE: There is no deformity, no bruising noted. She is tender to palpation along her axial lumbosacral spine and along her right sacral area and iliac crest. NEUROLOGIC: Sensation is intact bilateral lower extremities. Strength 5/5 on her EHL and ankle dorsi- and plantar flexion. There is no clonus of the ankle jerk bilaterally. ASSESSMENT: 1. Acute low back pain. 2. Lumbar spondylosis. PLAN: We are going order an MRI of the lumbar spine to evaluate if there are any new compression fracture given that she does not have a history of back pain and she had a decent fall. Want to make sure there are no acute compression fractures. Would continue her current pain medication regimen, Percocet 5-325 mg every 6 hours as needed and I will check back on her once her MRI is complete. If her MRI does not get completed while inpatient she is more than welcome to follow up with us outpatient as needed. DICTATING PHYSICIAN: MONCHO SCOTT, JASMYN For Dillon French MD [id number] PHY#: [id number] ID: [id number] JOB#: [id number] ACCT: [id number] cc:AUBREY HENLEY PA-C > MTDLin
--- NOTE | 2018-05-29 08:54 | PDOC DISCHARGE SUMMARY ---
General - Admit/Disc Date/PCP Admission Date/Primary Care Provider: 05/26/18 21:33 MILLA MUELLER MD Discharge Date: 05/29/18 - Discharge Diagnosis (1) Lumbar spine root compression Is this a current diagnosis for this admission?: Yes Summary: Currently all stable (2) Hypertension Is this a current diagnosis for this admission?: Yes (3) Gastroesophageal reflux disease Is this a current diagnosis for this admission?: Yes (4) Primary osteoarthritis of right knee Is this a current diagnosis for this admission?: Yes (5) Compression fracture of L1 lumbar vertebra Is this a current diagnosis for this admission?: Yes Summary: Patient seen by the pain management suggested continues to physical therapy no need for kyphoplasty (6) Chronic obstructive pulmonary disease Is this a current diagnosis for this admission?: Yes Summary: Continues uses Symbicort - Additional Information Resuscitation Status: Full Code Discharge Diet: Regular Discharge Activity: Activity As Tolerated Prescriptions: Oxycodone HCl/Acetaminophen [Percocet 5-325 mg Tablet] 1 tab PO Q6HP PRN #20 tablet PRN Reason: Home Medications: Budesonide/Formoterol Fumarate [Symbicort 160-4.5 Mcg Inhaler] 2 puff IH Q12 Cholecalciferol (Vitamin D3) [Vitamin D3 1000 Unit Tablet] 1,000 unit PO DAILY 05/27/18 Levocetirizine Dihydrochloride [Xyzal] 5 mg PO DAILY 05/27/18 Lisinopril/Hydrochlorothiazide [Lisinopril-Hctz 10-12.5 mg Tab] 1 tab PO DAILY 05/27/18 Montelukast Sodium [Singulair 10 mg Tablet] 10 mg PO DAILY 05/27/18 Simvastatin [Zocor 10 mg Tablet] 10 mg PO QHS 05/27/18 Oxycodone HCl/Acetaminophen [Percocet 5-325 mg Tablet] 1 tab PO Q6HP PRN #20 tablet 05/28/18 History of Present Illness History of Present Illness: PAL STERLING is a 77 year old female This is a 77-year-old female with a significant history of the knee issue and arthritis with a significant complications from the knee replacements and patients admitting in the [facility] last year currently doing well with the knee was fell yesterday at home and landed on the back in a complaining of back pain mostly on the right side In the emergency department patients all the x-rays pretty much stable patient was CT of the LS spine was done with some compressions but no fracture In emergency departments patients of a lot of pain in patients unable to walk and ER physicians decided to call me and suggest to admissions for further evaluations When I saw the patient's patient was currently doing well the pain under control with the Percocet patient is mostly complaining on the right side of the back Patient's denied any abdominal pain no nausea no vomiting Patients move all 4 extremities without any problems Patient's currently denied any dizziness no chest pain Hospital Course Hospital Course: This is a 77-year-old female came to the emergency department because of the fall and complaining of her back pain patient initial CT of the spine was also wearing compressions but no fracture but patients underwent for the MRI of the LS spine with some some L1 compression fractures which is very small Patient seen by the pain management and suggest no need for kyphoplasty continues to as needed pain medications Patient currently doing well patient's denied any chest pain denied any shortness of the breath Does walk with the physical therapy without much problems Is required a very minimal pain medications to control the pain With external discussion with patient and her daughter patient stable enough at this point wants to go home Follow-up pain management Will get the physical therapy and home health arrange Physical Exam Vital Signs: Temp Pulse Resp BP Pulse Ox 98.0 F 58 L 17 131/44 H 95 05/29/18 07:28 05/29/18 07:28 05/29/18 07:28 05/29/18 07:28 05/29/18 07:28 Intake & Output 05/28/18 05/29/18 05/30/18 06:59 06:59 06:59 Intake Total 1120 1100 Output Total 950 2200 Balance 170 -1100 Weight 65.2 kg 60.3 kg General appearance: PRESENT: no acute distress, well-developed, well-nourished Head exam: PRESENT: atraumatic, normocephalic Eye exam: PRESENT: conjunctiva pink, EOMI, PERRLA. ABSENT: scleral icterus Ear exam: PRESENT: normal external ear exam Mouth exam: PRESENT: moist, tongue midline Neck exam: PRESENT: full ROM. ABSENT: carotid bruit, JVD, lymphadenopathy, thyromegaly Respiratory exam: PRESENT: clear to auscultation hellen Cardiovascular exam: PRESENT: RRR. ABSENT: diastolic murmur, rubs, systolic murmur Pulses: PRESENT: normal dorsalis pedis pul, +2 pedal pulses bilateral Vascular exam: PRESENT: normal capillary refill GI/Abdominal exam: PRESENT: normal bowel sounds, soft. ABSENT: distended, guarding, mass, organolmegaly, rebound, tenderness Rectal exam: PRESENT: deferred Extremities exam: ABSENT: pedal edema Musculoskeletal exam: PRESENT: ambulatory Neurological exam: PRESENT: alert, awake, oriented to person, oriented to place , oriented to time, oriented to situation, CN II-XII grossly intact. ABSENT: motor sensory deficit Psychiatric exam: PRESENT: appropriate affect, normal mood. ABSENT: homicidal ideation, suicidal ideation Skin exam: PRESENT: dry, intact, warm. ABSENT: cyanosis, rash Results Laboratory Results: 05/29/18 06:15 05/29/18 06:15 05/29/18 05/29/18 06:15 06:15 WBC 5.9 RBC 4.26 Hgb 12.5 Hct 36.2 MCV 85 MCH 29.3 MCHC 34.4 RDW 13.8 Plt Count 162 Seg Neutrophils % 67.8 Lymphocytes % 16.9 Monocytes % 10.0 Eosinophils % 4.7 Basophils % 0.6 Absolute Neutrophils 4.0 Absolute Lymphocytes 1.0 Absolute Monocytes 0.6 Absolute Eosinophils 0.3 Absolute Basophils 0.0 Sodium 140.0 Potassium 3.8 Chloride 102 Carbon Dioxide 27 Anion Gap 11 BUN 18 Creatinine 0.73 Est GFR ( Amer) > 60 Est GFR (Non-Af Amer) > 60 Glucose 95 Calcium 9.1 Impressions: Lumbar Spine CT 05/26/18 17:47 IMPRESSION: Increased lordosis. Mild compression changes as described. These do not appear to be acute. Facet arthropathy. No significant disc protrusions are seen. No significant spinal stenosis is noted. Study is limited by lack of intrathecal contrast. Thoracic Spine X-Ray 05/26/18 17:47 IMPRESSION: CHRONIC DEGENERATIVE CHANGES. NO APPARENT ACUTE FINDINGS. Pelvis X-Ray 05/26/18 17:48 IMPRESSION: NO ACUTE FINDINGS. INTACT HARDWARE IN THE RIGHT FEMUR. Lumbar Spine MRI 05/27/18 00:00 IMPRESSION: 1. MARROW EDEMA IN THE L1 VERTEBRAL BODY WITH MINIMAL COMPRESSION CONSISTENT WITH RELATIVELY ACUTE COMPRESSION FRACTURE. NO SIGNIFICANT LOSS OF HEIGHT OF THE VERTEBRAL BODY AND NO COMPROMISE OF THE SPINAL CANAL. 2. NO SIGNIFICANT DISC DISEASE. NO STENOSIS OR IMPINGEMENT. DEGENERATIVE FACET ARTHROPATHY, MORE PRONOUNCED IN THE LOWER LUMBAR SPINE. Qualifiers - * PATIENT BEING DISCHARGED WITH ANY OF THE FOLLOWING DIAGNOSIS: No VTE patient discharged on overlapping Therapy?: Yes Plan Time Spent: Greater than 30 Minutes - Discharge home with home health and physical therapy Follow-up outpatients pain management Dr. Bunch's
[2018-05-29] MEDS: OXYCODONE-ACETAMINOPHEN 5-325 MG TABLET PO PRN (09:27)
[2018-05-29] MEDS: DOCUSATE SODIUM 100 MG CAPSULE PO SCH (09:27)
[2018-05-29] MEDS: FAMOTIDINE 20 MG TABLET PO SCH (09:27)
[2018-05-29] MEDS: ENOXAPARIN SODIUM INJ 40 MG/0.4 ML DISP.SYRIN SUBCUT SCH (09:28)
[2018-05-29 10:09] VITALS: BP 99/44
--- NOTE | 2018-05-30 08:21 | PROGRESS NOTE E ---
Progress Note NAME: PAL STERLING : 1940 AGE: 77Y DATE: 05/28/2018 ROOM: 434 SUBJECTIVE: The pain is improving. The medication is effective. No bowel movement x2 days. She is able to get in and out of bed to use the restroom and walk down the halls a little bit. She has mild lightheadedness while up and out of bed. No syncope. DIAGNOSTICS: MRI of lumbar spine completed 05/27/18. Impression: Marrow edema in the L1 vertebral body with minimal compression consistent with relatively acute compression fracture. No significant loss of height of the vertebral body and no compromise of the spinal canal. There is no significant disk disease. No significant impingement. There is degenerative facet arthropathy more pronounced in the lower lumbar spine. OBJECTIVE: VITALS: Temperature 98.1, pulse 53, blood pressure 115/41, respirations 13, oxygen saturation 94 on room air. GENERAL: A well-developed, well-nourished 77-year-old female in no acute distress, sitting comfortably in bed. Four additional family member present today. EYES: EOMI. Wearing glasses. RESPIRATION: Even, nonlabored work of breathing. Lungs are clear to auscultation. CARDIOVASCULAR: Regular rate and rhythm. No murmurs, rubs, or gallops. ABDOMEN: Soft, nontender, nondistended, and has normoactive bowel sounds x4 quadrants. NEUROLOGIC: She is alert and oriented x3. Cranial nerves II-XII grossly intact. Light touching intact in bilateral lower extremities. She is able to move her lower extremities in bed. ASSESSMENT: 1. MILD COMPRESSION FRACTURE L1. 2. LOW BACK PAIN. 3. LUMBAR SPONDYLOSIS. PLAN: Conservative management as far as watching weight in regards to the compression fracture. Avoid any heavy lifting, twisting. Fall precautions discussed and encouraged use of her walker while at home. Okay to discharge home as soon as possible. She can follow up with us outpatient as needed, and we are also adding some MiraLax 1 dose tonight with her p.m. meds to assist with the constipation. DICTATING PHYSICIAN: MONCHO SCOTT, PA-C For Dillon French MD [id number] PHY#: [id number] ID: [id number] JOB#: [id number] ACCT: [id number] cc: > MTDD
== END 2018-05-29 11:00 | disposition home health service (06) | DRG 552 ==
LOC: ER 17:20 → INTOOBSV 21:33 → EH 21:33 → 4S 05-27 01:15 → OBSVTOIN 05-28 11:40
PROVIDERS: ADMIT Family Medicine; ATTEND Family Medicine
DX: S32.019A Unspecified fracture of first lumbar vertebra, initial encounter for closed fracture (principal); E78.5 Hyperlipidemia, unspecified; J44.9 Chronic obstructive pulmonary disease, unspecified; I10 Essential (primary) hypertension; M17.11 Unilateral primary osteoarthritis, right knee; K21.9 Gastro-esophageal reflux disease without esophagitis; W18.30XA Fall on same level, unspecified, initial encounter; Y92.030 Kitchen in apartment as the place of occurrence of the external cause; Z88.2 Allergy status to sulfonamides; Z91.018 Allergy to other foods; Z79.51 Long term (current) use of inhaled steroids
CPT/HCPCS: 36415; 72070; 72131; 72148; 72170; 80048; 80053; 81001; 85025; 85610; 96374; 96375; 99285; G0378; G8978-GP; G8979-GP; J1100; J1650; J2270; J2405; J3490

== ENCOUNTER → 2018-11-20 | Outpatient (CLI) | payer MEDICARE ==
--- NOTE | 2018-11-20 09:48 | WOMENS IMAGING REPORT ---
EXAM DESCRIPTION: BONE DENSITY HIP/SPINE COMPLETED DATE/TIME: 11/20/2018 9:33 am REASON FOR STUDY: M81.0 AGE-RELATED OSTEOPOROSIS WITHOUT CURRENT PATHOLOGICAL FRACTURE M81.0 AGE-RE LATED OSTEOPOROSIS W/O CURRENT PATHOLOGICAL FRAC COMPARISON: None. TECHNIQUE: Dual-Energy X-ray Absorptiometry (DEXA) of the AP Spine and Hip. LIMITATIONS: None. FINDINGS: LUMBAR SPINE: The bone mineral density (BMD) measured from L1-L4 in the AP projection correlates with a T-score of -0.2, which is normal as defined by the World Health Organization. BMD change since the previous exa mination dated 07/24/2014 is 24.1%. HIP: The bone mineral density (BMD) measured in the left hip correlates with a T-score of -2.9, which is o steoporosis as defined by the World Health Organization. BMD change since the previous examination d ated 07/24/2014 is 10.5%. IMPRESSION: 1. LUMBAR SPINE: Normal 2. HIP: Osteoporosis COMMENT: The World Health Organization defines low BMD as follows: T-score: Normal: Greater than -1.0 Osteopenia: Between -1.0 and -2.5 Osteoporosis: Less than -2.5 without fractures Established osteoporosis: Less than -2.5 with fractures In general, you may wish to consider: Diagnosis Treatment Follow-up DEXA Normal BMD Prevention 2-3 years Osteopenia Prevention/Therapy 1-2 years Osteoporosis Therapy Yearly TECHNICAL DOCUMENTATION: JOB ID: [id number] [employer]- All Rights Reserved Reading location - IP/workstation name: [email or web address]
== END ==
LOC: WI 09:06
PROVIDERS: ATTEND Family Medicine
DX: M81.0 Age-related osteoporosis without current pathological fracture (principal)
CPT/HCPCS: 77080